=== PATIENT | female | born 1965 | race Caucasian/White ===

== ENCOUNTER → 2017-05-10 | Outpatient (CLI) | payer BC | LOC: KOH-I 15:00 → US 05-11 11:30 | DX: N92.5 Other specified irregular menstruation (principal); R93.8 Abnormal findings on diagnostic imaging of other specified body structures | CPT/HCPCS: 76830 ==

== ENCOUNTER → 2021-03-16 | Outpatient (CLI) | payer OTHER ==
[~2021-03-16] MED LIST: BACTROBAN CREAM15 GM TOP; IBUPROFEN800 MG PO; KEFLEX CAP 500500 MG PO
== END ==
LOC: KOH-I 14:29
DX: M79.672 Pain in left foot (principal); M79.671 Pain in right foot
CPT/HCPCS: 73610; 73630

== ENCOUNTER 2021-09-23 09:37 | Emergency (ER) | payer OTHER | END 2021-09-23 10:34 | disposition left against medical advice (07) | LOC: ER1 09:37 | DX: Z53.21 Procedure and treatment not carried out due to patient leaving prior to being seen by health care provider (principal) ==